=== PATIENT | male | born 1980 | race Caucasian/White ===

== ENCOUNTER → 2017-06-14 | Day surgery (SDC) | payer BC ==
[~2017-06-14] MED LIST: LIDOCAINE 1%/EPI 1:100,000 20 ML VIAL. INJ; LIDOCAINE 2%/EPI 1:100,000 20 ML VIAL. IJ
[2017-06-14] MEDS: LIDOCAINE 2%/EPI 1:100,000 20 ML VIAL. IJ (09:05)
== END | disposition home or self-care (01) ==
LOC: SURG 08:16
DX: L72.8 Other follicular cysts of the skin and subcutaneous tissue (principal)
CPT/HCPCS: 11422; 88304; J3490